=== PATIENT | male | born 1970 | race American Indian/Alaskan Native ===

== ENCOUNTER 2017-11-27 11:58 | Emergency (ER) | payer OTHER ==
[2017-11-27 12:07] VITALS: BP 165/114
[2017-11-27] MEDS ORDERED: ULTRAM PO ONE (14:40)
--- NOTE | 2017-11-27 15:54 | Emergency Department Report ---
HPI - General Chief Complaint: Extremity Injury, Upper Time Seen by Provider: 11/27/17 14:26 - HPI HPI: The patient is a 47-year-old male presents for evaluation of left elbow pain. The patient reports left elbow pain for the past 2 months, worse for the past one week, 7/10 in severity, throbbing in quality, exacerbated with movement of the left arm at the elbow joint. The patient states that he struck his posterior left elbow while at work 2 months ago, he has experienced deep pain on and off since. He denies recent or new trauma to the left elbow, paresthesias in the distal arm or hand, loss pf motor function, color change, swelling of the elbow, or open wound to the elbow. ED Past Medical Hx - Past Medical History Previous Medical History?: Yes Hx Hypertension: Yes (no meds) Additional medical history: Left arm pain/injury - Surgical History Past Surgical History?: No - Social History Smoking Status: Current Every Day Smoker Substance Use Type: Alcohol - Medications Home Medications: Home Medications Medication Instructions Recorded Confirmed Last Taken Type Ibuprofen [Motrin] 800 mg PO Q8HR PRN #15 tablet 11/27/17 Unknown Rx traMADol [Ultram 50 MG tab] 50 mg PO Q6HR PRN #15 tablet 11/27/17 Unknown Rx ED Review of Systems ROS: Stated complaint: LEFT ARM PAIN Other details as noted in HPI Constitutional: denies: fever ENT: denies: throat or neck pain Respiratory: denies: cough, shortness of breath Cardiovascular: denies: chest pain Endocrine: denies unexplained weight loss or gain Gastrointestinal: denies: abdominal pain, nausea Genitourinary: denies: dysuria Musculoskeletal: reports left elbow pain Skin: denies: rash Neurological: denies: headache Hematological/Lymphatic: denies: easy bleeding or easy bruising Psych: denies sadness or hopelessness Physical Exam - Physical Exam Vital Signs: Vital Signs 11/27/17 12:02 Temperature 97.6 F Pulse Rate 79 Respiratory 20 Rate Blood Pressure 165/114 O2 Sat by Pulse 98 Oximetry Physical Exam: General: well-nourished, well-developed, no acute distress Head: Normocephalic, atraumatic Eyes: normal sclera ENT: Mucous membranes are pink and moist Neck: trachea midline, neck supple, No neck stiffness, no cervical adenopathy Respiratory: Breath sounds equal bilaterally, no wheezing, rales, or rhonchi Cardio: S1 and S2 present, no murmurs, rubs, gallops, capillary refill is brisk Abdomen: Normoactive bowel sounds, soft abdomen, no rigidity, no guarding or rebound tenderness Chest WALL/Back: No tenderness to palpation of the chest wall, no CVA tenderness with percussion Musc: Posterior medial left elbow tenderness to palpation present, no swelling, redness, warmth, pus was, or crepitus, distal sensation and 1+ and pulses intact , No pitting edema Skin: No rash Neuro: no facial drooping, normal speech Psych: Normal affect ED Course Vital Signs 11/27/17 12:02 Temperature 97.6 F Pulse Rate 79 Respiratory 20 Rate Blood Pressure 165/114 O2 Sat by Pulse 98 Oximetry ED Medical Decision Making - Medical Decision Making The patient was seen and examined by myself. 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 On initial evaluation, the patient was found to be in no distress. Evaluation orders were placed. The patient is given pain medicine. X-ray of the left elbow is negative. The patient was reevaluated and reported that their symptoms were markedly improved. The patient is stable for discharge with outpatient follow-up. The patient is given follow-up and return instructions. The patient expressed understanding and agreed with the plan. The patient is discharged in stable condition. Critical care attestation.: If time is entered above; I have spent that time in minutes in the direct care of this critically ill patient, excluding procedure time. ED Disposition Clinical Impression: Left elbow pain Disposition: - TO HOME OR SELFCARE Is pt being admited?: No Does the pt Need Aspirin: No Condition: Stable Instructions: Musculoskeletal Pain (ED), Elbow Sprain (ED) Referrals: GLENIS MORA MD [Primary Care Provider] - 3-5 Days LIO LOPEZ MD [Staff Physician] - 3-5 Days Time of Disposition: 15:48
--- NOTE | 2017-11-27 16:20 | XRay Report ---
FINAL REPORT PROCEDURE: XR ELBOW 2V LT TECHNIQUE: LEFT elbow radiographs, including AP, lateral, and oblique views. CPT 47561 HISTORY: intermittent left elbow pain for 2 months COMPARISON: No prior studies are available for comparison. FINDINGS: Fracture (s) and/or Dislocation(s): None . Alignment: Normal . Joint space(s): Normal . Soft tissues: Normal . Bone mineralization: Normal . Foreign bodies: None . IMPRESSION: Normal Examination
== END 2017-11-27 17:00 | disposition home or self-care (01) ==
LOC: ED 11:58
DX: S53.492A Other sprain of left elbow, initial encounter (principal); F17.200 Nicotine dependence, unspecified, uncomplicated; W22.8XXA Striking against or struck by other objects, initial encounter; Y93.89 Activity, other specified; Y92.89 Other specified places as the place of occurrence of the external cause; Y99.8 Other external cause status
CPT/HCPCS: 93005; 93010; 99283